=== PATIENT | female | born 1990 | race Caucasian/White ===

== ENCOUNTER 2017-09-07 23:30 | Emergency (ER) | payer OTHER | END 2017-09-08 00:20 | disposition home or self-care (01) | LOC: M ED 23:30 | DX: S60.041A Contusion of right ring finger without damage to nail, initial encounter (principal); W23.0XXA Caught, crushed, jammed, or pinched between moving objects, initial encounter; Y92.9 Unspecified place or not applicable; Y93.9 Activity, unspecified; Y99.1 Military activity; Z72.0 Tobacco use | CPT/HCPCS: 73140 ==